=== PATIENT | female | born 1980 | race Caucasian/White ===

== ENCOUNTER 2018-04-02 00:25 | Inpatient (IN) | payer OTHER ==
[~2018-04-02] VITALS: Ht 157.5 cm; Wt 58.9 kg
[2018-04-02] MEDS ORDERED: ONDANSETRON 4 MG INJ IV PRN (04:00)
[2018-04-02] MEDS ORDERED: morphine 2 MG INJ IV PRN (04:00)
[2018-04-02] MEDS ORDERED: NACL 0.9% 3 ML SYG IV SCH (04:00)
[2018-04-02 04:01] VITALS: BP 90/55; PULSE 64; RESP 18
--- NOTE | 2018-04-02 04:06 | HP ---
Date/Time of Note Date/Time of Note DATE: 04/02/18 TIME: 04:06 Assessment/Plan VTE Prophylaxis Pharmacological prophylaxis: other Lines/Catheters IV [facility]from [facility] Peripheral IV Assessment/Plan Hospital Course Patient is a female with a past medical history significant for recent diagnosis of gallstones who presents to [facility] as a transfer from outside facility. Patient has been going to the ER multiple times over the past month for right upper quadrant pain. Patient has been diagnosed with gallstones however no cholecystitis. During the visit today, patient once again got an ultrasound that stated that there may be some pericholecystic fluid associated with the gallbladder as well as possibility of some gallstones. Radiologist over at [facility] suggested a HIDA scan. Currently patient states that she has been trying get an appointment with her primary care physician but her appointment is still a few weeks away. Patient still complains of right upper quadrant pain however appears well. Patient denies chest pain, shortness of breath, headache, dizziness, leg pain. Patient also states she had mild nausea and vomiting. Objective Physical exam General: Patient is laying in bed and answers questions appropriately Mentation: Patient is alert and oriented 4, Head: Normocephalic atraumatic Eyes: EOMI, pupils reactive to light Neck: Supple, nontender, midline Respiratory: Clear to auscultation bilaterally Cardiovascular: regular rate, no obvious murmurs Gastrointestinal: Right upper quadrant tenderness to palpation, bowel sounds heard. Neurological: Moves all extremities spontaneously Skin: No new skin lesions Assessment and plan symptomatic Cholelithiasis with possible cholecystitis -Ultrasound at outside facility found gallstones with pericholecystic fluid, not definitive cholecystitis but recommended HIDA scan- -HIDA scan ordered -N.p.o. -IV fluid -Due to the uncertain nature of the previous ultrasound, will await HIDA scan. -will consult Dr. Amos, general surgery to be on board due to symptomatic cholilithiasis. -Liver enzymes from outside facility are within normal limits, no fever, no white count. The above decisions were made based on lab values from transferring facility, blood work and labs are ordered stat and still pending at this facility. Disposition -We will await results of HIDA scan and general surgery consultation. Results 24hrs Laboratory Tests Test 04/02/18 03:55 White Blood Count Pending Red Blood Count Pending Hemoglobin Pending Hematocrit Pending Mean Corpuscular Volume Pending Mean Corpuscular Hemoglobin Pending Mean Corpuscular Hemoglobin Concent Pending Red Cell Distribution Width Pending Platelet Count Pending Mean Platelet Volume Pending HPI/ROS Admit Date/Time Admit Date/Time Apr 02, 2018 at 03:17 PMH/Family/Social Past Medical History Medications Current Medications Sodium Chloride 1,000 ml @ 70 mls/hr [id number] IV ; Start 04/02/18 at 03:37 IV Flush (NS 3 ml) 3 ml PER PROTOCOL IV ; Start 04/02/18 at 04:00 Ondansetron HCl (Zofran Inj) 4 mg Q6H PRN IV NAUSEA/VOMITING; Start 04/02/18 at 04:00 Morphine Sulfate (morphine) 2 mg Q4H PRN IV .PAIN 7-10; Start 04/02/18 at 04:00 Pantoprazole (Protonix Iv) 40 mg DAILY@06 IV ; Start 04/02/18 at 06:00 Piperacillin Sod/ Tazobactam Sod 100 ml @ 200 mls/hr Q6 IVPB ; Start 04/02/18 at 06:00 Coded Allergies: No Known Allergy (Verified , 11/11/11) Social History Smoking Status: Never smoker Exam/Review of Systems Vital Signs Vitals Vital Signs Date Temp Pulse Resp B/P (MAP) Pulse Ox O2 O2 Flow FiO2 Time Delivery Rate 04/02/18 98.0 64 18 90/55 (67) 98 Room Air 04:01 TILA IRVIN Apr 02, 2018 04:06
[2018-04-02] MEDS: SOD CHLORIDE 0.9% 1,000 ML IV SCH (04:08)
[2018-04-02 04:11] VITALS: Ht 157.5 cm; Wt 58.9 kg
[2018-04-02] MEDS: PIPER-TAZO 3.375 GM IV (PMX) 100 ML IVPB SCH ×3 (05:30→19:10)
[2018-04-02] MEDS: PANTOPRAZOLE 40 MG INJ IV SCH (05:30)
[2018-04-02 07:34] VITALS: BP 93/54; PULSE 63; RESP 18
--- NOTE | 2018-04-02 10:03 | QN ---
Documentation Comment This is a 37-year-old female admitted overnight as a transfer from outside facility with right upper quadrant pain. 1. Recurrent biliary colic, with cholelithiasis, rule out acute cholecystitis 2. Hypochromic microcytic anemia: Chronic stable 3. Acute transaminitis Plan: -Await general surgical review -Follow-up HIDA scan -MRCP -Continue supportive care MIKKI ESPINOSA Apr 02, 2018 10:03
[2018-04-02] MEDS ORDERED: FAMOTIDINE 20 MG INJ IV ONE (13:00)
--- NOTE | 2018-04-02 15:25 | PREAC ---
Date/Time of Note Date/Time of Note DATE: 04/02/18 TIME: 15:23 Anesthesia Eval and Record Evaluation Time Pre-Procedure Interview DATE: 04/02/18 TIME: 15:23 Age 37 Sex female NPO: 8 hrs Preoperative diagnosis symptomatic Cholelithiasis Planned procedure laparoscopic cholecystectomy Past Medical History Past Medical History: None Surgery & Anesthesia Issues No known issue Meds Anticoagulation: No Beta Billy within 24 hr: No Reason Beta Billy not given: Pt. not on B-Billy Reported Medications [none] No Conflict Check 11/11/11 Current Medications Sodium Chloride 1,000 ml @ 70 mls/hr [id number] IV Last administered on 04/02/18at 04:08; Admin Dose 70 MLS/HR; Start 04/02/18 at 03:37 IV Flush (NS 3 ml) 3 ml PER PROTOCOL IV ; Start 04/02/18 at 04:00 Ondansetron HCl (Zofran Inj) 4 mg Q6H PRN IV NAUSEA/VOMITING; Start 04/02/18 at 04:00 Pantoprazole (Protonix Iv) 40 mg DAILY@06 IV Last administered on 04/02/18at 05:30; Admin Dose 40 MG; Start 04/02/18 at 06:00 Piperacillin Sod/ Tazobactam Sod 100 ml @ 200 mls/hr Q6 IVPB Last administered on 04/02/18at 11:52; Admin Dose 200 MLS/HR; Start 04/02/18 at 06:00 Influenza Virus Vaccine Quadrival (Fluzone) 0.5 ml ONCE ONCE IM* ; Start 04/03/18 at 10:00; Stop 04/03/18 at 10:01 Morphine Sulfate (morphine) 4 mg Q4H PRN IV .PAIN 7-10; Start 04/02/18 at 16:00 Simethicone (Mylicon) 80 mg Q6H PRN PO DISTENSION/GAS/BLOATING; Start 04/02/18 at 13:00 Meds reviewed: Yes Allergies Coded Allergies: No Known Allergy (Verified , 11/11/11) Allergies Reviewed: Yes Labs/Studies Labs Reviewed: Reviewed by anesthesiologist Result Diagram: 04/02/18 0355 04/02/18 0355 Laboratory Tests 04/02/18 03:55 test: Negative Pre-procedure Exam Last vitals Vital Signs Date Temp Pulse Resp B/P (MAP) Pulse Ox O2 O2 Flow FiO2 Time Delivery Rate 04/02/18 97.6 63 18 93/54 (67) 100 Room Air 07:34 Airway: Adequate mouth opening Mallampati: Mallampati II Teeth: Normal Lung: Normal Heart: Normal ASA Physical Status ASA physical status: 1 Emergency: None Planned Anesthetic General/MAC: ETT Pre-operative Attestations Prior to commencing anesthesia and surgery, the patient was re-evaluated, there was verification of: *The patient's identity *The results of appropriate recent lab work and preoperative vital signs *The above evaluation not changing prior to induction *Anesthetic plan, risk benefits, alternative and complications discussed with patient/family; questions answered; patient/family understands, accepts and wishes to proceed. OPAL CONKLIN Apr 02, 2018 15:25
[2018-04-02 16:04] VITALS: BP 93/57; PULSE 69; RESP 18
[2018-04-02] MEDS: morphine 4 MG/ML VIAL IV PRN ×2 (19:00→23:59)
[2018-04-02 19:18] VITALS: BP 102/63; PULSE 74; RESP 16
[2018-04-03] VITALS (22 sets, daily range): BP systolic 89–150; BP diastolic 51–80; PULSE 63–92; RESP 12–25
[2018-04-03] MEDS: PIPER-TAZO 3.375 GM IV (PMX) 100 ML IVPB SCH ×5 (00:07→19:35)
[2018-04-03] MEDS: PANTOPRAZOLE 40 MG INJ IV SCH (05:28)
[2018-04-03] MEDS: morphine 4 MG/ML VIAL IV PRN ×4 (05:29→20:33)
--- NOTE | 2018-04-03 07:13 | CONS ---
Assessment/Plan Assessment/Plan Assessment/Plan (Daily) No evidence of cystic duct obstruction on HIDA scan. Patient however quite symptomatic with positive Emerson sign. She has been seen multiple times in the emergency room. My recommendation is that the patient undergo laparoscopic cholecystectomy, possible open. I have discussed the procedure, outcomes, alternatives and risks in detail with the patient who is most anxious to proceed. Consultation Date/Type/Reason Admit Date/Time Apr 02, 2018 at 03:17 Date of Consultation: Apr 03, 2018 Type of Consult General surgery Reason for Consultation Severe biliary colic versus cholecystitis Date/Time of Note DATE: 04/03/18 TIME: 07:10 Hx of Present Illness The patient is an otherwise healthy 37-year-old female who has had multiple emergency room visits for right upper quadrant abdominal pain. She has known gallstones. She was recently hospitalized at another facility then transferred here for continuance of care. Yesterday HIDA scan was performed and did not show cystic duct obstruction. The patient however continues to be quite symptomatic. She has had no fevers, chills or jaundice. Her LFTs are normal Constitutional: no complaints Eyes: no complaints ENT: no complaints Respiratory: no complaints Cardiovascular: no complaints Gastrointestinal: pain (Upper quadrant), nausea, vomiting Genitourinary: no complaints Musculoskeletal: no complaints Skin: no complaints Neurologic: no complaints Endocrine: no complaints Lymphatic: no complaints Past Medical History Medical History: gallstones Home Meds Reported Medications [none] No Conflict Check 11/11/11 Medications Current Medications Sodium Chloride 1,000 ml @ 70 mls/hr [id number] IV Last administered on 04/03/18at 00:00; Admin Dose 70 MLS/HR; Start 04/02/18 at 03:37 IV Flush (NS 3 ml) 3 ml PER PROTOCOL IV ; Start 04/02/18 at 04:00 Ondansetron HCl (Zofran Inj) 4 mg Q6H PRN IV NAUSEA/VOMITING; Start 04/02/18 at 04:00 Pantoprazole (Protonix Iv) 40 mg DAILY@06 IV Last administered on 04/03/18at 05:28; Admin Dose 40 MG; Start 04/02/18 at 06:00 Piperacillin Sod/ Tazobactam Sod 100 ml @ 200 mls/hr Q6 IVPB Last administered on 04/03/18at 05:29; Admin Dose 200 MLS/HR; Start 04/02/18 at 06:00 Influenza Virus Vaccine Quadrival (Fluzone) 0.5 ml ONCE ONCE IM* ; Start 04/03/18 at 10:00; Stop 04/03/18 at 10:01 Morphine Sulfate (morphine) 4 mg Q4H PRN IV .PAIN 7-10 Last administered on 04/03/18at 05:29; Admin Dose 4 MG; Start 04/02/18 at 16:00 Simethicone (Mylicon) 80 mg Q6H PRN PO DISTENSION/GAS/BLOATING; Start 04/02/18 at 13:00 Allergies: Coded Allergies: No Known Allergy (Verified , 11/11/11) Past Surgical History Past Surgical Hx: no surgical history Family History Significant Family History: no pertinent family hx Social History Alcohol Use: none Smoking Status: Never smoker Exam/Review of Systems Exam Vitals Vital Signs Date Temp Pulse Resp B/P (MAP) Pulse Ox O2 O2 Flow FiO2 Time Delivery Rate 04/03/18 98.9 63 16 96/69 (78) 98 Room Air 01:17 Intake and Output 04/02/18 04/02/18 04/03/18 1414:59 22:59 06:59 IntakeIntake Total 200 ml 1130 ml 900 ml OutputOutput Total 2 ml BalanceBalance 200 ml 1128 ml 900 ml Constitutional: alert, oriented Psych: no complaints Head: normocephalic Eyes: nl conjunctiva ENMT: nl external ears & nose Neck: supple Respiratory: clear to auscultation Cardiovascular: regular rate and rhythm Gastrointestinal: tender (Right upper quadrant. Positive Emerson sign) Musculoskeletal: nl extremities to inspection Extremities: normal pulses Neurological: GLASS SANDER BELT II-XII intact Results Result Diagram: 04/03/18 0430 04/03/18 0430 Results 24hrs Laboratory Tests Test 04/02/18 10:00 04/03/18 04:30 Urine Test NEGATIVE White Blood Count 4.8 Red Blood Count 3.85 L Hemoglobin 9.2 L Hematocrit 29.5 L Mean Corpuscular Volume 76.6 L Mean Corpuscular Hemoglobin 23.9 L Mean Corpuscular Hemoglobin Concent 31.2 L Red Cell Distribution Width 15.3 H Platelet Count 281 Mean Platelet Volume 10.2 Immature Granulocytes % 0.200 Neutrophils % 44.5 Lymphocytes % 41.8 Monocytes % 9.1 Eosinophils % 4.0 Basophils % 0.4 Nucleated Red Blood Cells % 0.0 Immature Granulocytes # 0.010 Neutrophils # 2.1 Lymphocytes # 2.0 Monocytes # 0.4 Eosinophils # 0.2 Basophils # 0.0 Nucleated Red Blood Cells # 0.0 Sodium Level 142 Potassium Level 3.9 Chloride Level 106 Carbon Dioxide Level 22 Anion Gap 14 H Blood Urea Nitrogen 3 L Creatinine 0.52 Est Glomerular Filtrat Rate mL/min > 60 Glucose Level 67 #L Calcium Level 8.5 Magnesium Level 1.8 Total Bilirubin 0.0 L Direct Bilirubin 0.00 Indirect Bilirubin 0.0 Aspartate Amino Transf (AST/SGOT) 59 H Alanine Aminotransferase (ALT/SGPT) 97 H Alkaline Phosphatase 70 Total Protein 6.1 Albumin 3.2 L Globulin 2.90 Albumin/Globulin Ratio 1.10 Lipase 56 Medications Medication Current Medications Sodium Chloride 1,000 ml @ 70 mls/hr [id number] IV Last administered on 04/03/18at 00:00; Admin Dose 70 MLS/HR; Start 04/02/18 at 03:37 IV Flush (NS 3 ml) 3 ml PER PROTOCOL IV ; Start 04/02/18 at 04:00 Ondansetron HCl (Zofran Inj) 4 mg Q6H PRN IV NAUSEA/VOMITING; Start 04/02/18 at 04:00 Pantoprazole (Protonix Iv) 40 mg DAILY@06 IV Last administered on 04/03/18at 05:28; Admin Dose 40 MG; Start 04/02/18 at 06:00 Piperacillin Sod/ Tazobactam Sod 100 ml @ 200 mls/hr Q6 IVPB Last administered on 04/03/18 05:29; Admin Dose 200 MLS/HR; Start 04/02/18 at 06:00 Influenza Virus Vaccine Quadrival (Fluzone) 0.5 ml ONCE ONCE IM* ; Start 04/03/18 at 10:00; Stop 04/03/18 at 10:01 Morphine Sulfate (morphine) 4 mg Q4H PRN IV .PAIN 7-10 Last administered on 04/03/18 05:29; Admin Dose 4 MG; Start 04/02/18 at 16:00 Simethicone (Mylicon) 80 mg Q6H PRN PO DISTENSION/GAS/BLOATING; Start 04/02/18 at 13:00 RASHAUN BUNDY MD Apr 03, 2018 07:13
[2018-04-03] MEDS ORDERED: GLYCOPYRROLATE 0.4 MG INJ ONE (09:41)
[2018-04-03] MEDS ORDERED: KETOROLAC 30 MG INJ ONE (09:41)
[2018-04-03] MEDS ORDERED: ROPIVACAINE 0.5 % 30 ML VIAL ONE (09:41)
[2018-04-03] MEDS ORDERED: ONDANSETRON 4 MG INJ ONE (09:41)
[2018-04-03] MEDS ORDERED: METOCLOPRAMIDE 10 MG INJ ONE (09:41)
[2018-04-03] MEDS ORDERED: ROCURONIUM 50 MG INJ ONE (09:41)
[2018-04-03] MEDS ORDERED: PROPOFOL 20 ML ONE (09:41)
[2018-04-03] MEDS ORDERED: NEOSTIGMINE 3 MG/3 ML SYRINGE ONE (09:41)
[2018-04-03] MEDS ORDERED: BUPIVACAINE 0.5%/EPI (SDV) 30 ML INJ ONE (09:57)
[2018-04-03] MEDS ORDERED: MEPERIDINE 25 MG INJ IV PRN (10:00)
[2018-04-03] MEDS ORDERED: DIPHENHYDRAMINE 50 MG INJ IV PRN (10:00)
[2018-04-03] MEDS ORDERED: INFLUENZA VIRUS VACCINE 0.5 ML (DISPENSING) IM* ONE (10:00)
[2018-04-03] MEDS ORDERED: ONDANSETRON 4 MG INJ IV PRN (10:00)
[2018-04-03] MEDS ORDERED: KETOROLAC 30 MG INJ IV PRN (10:00)
[2018-04-03] MEDS ORDERED: HYDROmorphONE 1 MG/5 ML IV SYRINGE IV PRN ×3 (10:00)
[2018-04-03] MEDS ORDERED: EPHEDrine 25 MG/5 ML SYG ONE (10:28)
--- NOTE | 2018-04-03 11:16 | OPR ---
Date/Time of Note Date/Time of Note DATE: 04/03/18 TIME: 11:11 Operative Report Procedure Date: Apr 03, 2018 Preoperative Diagnosis Acute cholecystitis versus biliary colic Postoperative Diagnosis Acute cholecystitis Operation/Procedure Performed 1. Laparoscopic cholecystectomy 2. Placement of drain Surgeon Rashaun Bundy MD Lube Attendant None Anesthesia Type: general Anesthesiologist: CANDIE RAMOS MD Estimated Blood Loss: minimal Transfusion none Specimen Gallbladder Grafts/Implants none Tubes/Drains #19 Round Neo Complications none Pt Condition Post Procedure: stable Disposition: PACU Indications Symptomatic cholelithiasis Procedure Description After satisfactory general endotracheal anesthesia was achieved, the abdomen was prepped and draped in the usual fashion. The abdomen was insufflated with carbon dioxide through an umbilical Veress needle to 15 mmHg pressure. The Veress needle was removed and the incision extended to 5 mm through which a 5 mm trocar was placed. A 5 mm 0 degree lens was placed. Laparoscopy showed a distended gallbladder which was edematous at its base, indicating acute cholecystitis. Under direct visualization a 12 mm epigastric trocar was placed as well as 2 more 5 mm right lateral abdominal trochars. The dome of the gallbladder was then grasped and retracted superiorly. Hay's pouch was gr asped and retracted inferolaterally. The hepatoduodenal ligament was carefully dissected between the gallbladder and the well-visualized common duct. The cystic duct was then quadruply hemoclipped and divided high at the junction of the gallbladder and the cystic duct. The cystic artery was identified immediately posteriorly. This was divided over clips. There was a tiny 1 mm accessory duct identified just near the cystic artery. This was divided over clip. The gallbladder was then dissected from below using electrocautery dissection and placed intact into an Endo Catch removed by the epigastric route. Hemostasis of the liver bed was total, and irrigant returned clear. Because of the inflammation and because of the identification of an accessory bile duct, it was elected to place a drain. A #19 round Neo drain was placed draining the right subhepatic space and gallbladder fossa and exited through the lateralmost puncture site where it was secured to skin with 2-0 nylon. The abdomen was then desufflated and all trochars were removed. The fascia of the epigastrium was closed with 2 sutures of 0 Vicryl. Skin punctures were infiltrated with 30 cc of 0.25% Marcaine with epinephrine and closed with christian. Sponge and needle counts were reported as correct x2. RASHAUN BUNDY MD Apr 03, 2018 11:16
[2018-04-03] MEDS ORDERED: PHENYLephrine 10 MG INJ ONE (11:19)
[2018-04-03] MEDS ORDERED: morphine 2 MG INJ IV PRN (11:30)
[2018-04-03] MEDS ORDERED: OXYCODONE/ACETAMINOPHEN (5/325) TAB PO PRN (11:30)
--- NOTE | 2018-04-03 12:21 | PAC ---
Date/Time of Note Date/Time of Note DATE: 04/03/18 TIME: 12:21 Post-Anesthesia Notes Post-Anesthesia Note Last documented vital signs Vital Signs Date Temp Pulse Resp B/P (MAP) Pulse Ox O2 O2 Flow FiO2 Time Delivery Rate 04/03/18 98 72 15 121/67 100 Room Air 11:54 (85) 04/03/18 8.0 11:39 04/03/18 98.0 11:23 Activity: WNL Respiratory function: WNL Cardiovascular function: WNL Mental status: Baseline Pain reasonably controlled: Yes Hydration appropriate: Yes Nausea/Vomiting absent: No CANDIE RAMOS MD Apr 03, 2018 12:21
[2018-04-03] MEDS: ONDANSETRON 4 MG INJ IV PRN (18:25)
[2018-04-03] MEDS: SOD CHLORIDE 0.9% 1,000 ML IV SCH ×3 (19:30→20:34)
--- NOTE | 2018-04-03 19:50 | PN ---
DATE: 04/03/2018 SUBJECTIVE: Postoperative pain. PHYSICAL EXAMINATION GENERAL: Lethargic from anesthesia, but arousable, currently comfortable. HEENT: Head is normocephalic. Pupils equal and reactive. NECK: Supple. CHEST: Clear. ABDOMEN: Still mildly distended. Operative site covered in clean, dry dressing clean bandage. Hypo active bowel sounds. EXTREMITIES: Lower extremities negative for edema. NEUROLOGIC: No gross focal deficits. LABORATORY VALUES: Reviewed. All other chronic and stable hypochromic microcytic anemia, otherwise, unremarkable. LFTs are improved today to 59 and 97. Urinalysis negative. IMPRESSION: A 37-year-old female with right upper quadrant pain managed for the followin. Acute cholelithiasis with biliary colic with concerns for acute cholecystitis. She is status pos t laparoscopic cholecystectomy and drain placement today. 2. Transaminitis, MRCP ruled out active choledocholithiasis. The patient may have passed stone. Le vels are trending down. DISPOSITION: Continue routine postop care. Continue to ____ liver transaminases. Continue vent sup port, pain control. Further interventions per course. Discharge once cleared by surgery. Dictated By: MIKKI ESPINOSA MD BA/NTS Conf#: [id number] DID#: [id number] CC: TILA IRVIN MD;*EndCC*
[2018-04-04] MEDS: ONDANSETRON 4 MG INJ IV PRN ×2 (00:13→08:55)
[2018-04-04] MEDS: morphine 4 MG/ML VIAL IV PRN ×2 (00:15→05:36)
[2018-04-04] MEDS: PIPER-TAZO 3.375 GM IV (PMX) 100 ML IVPB SCH ×5 (00:15→23:36)
[2018-04-04 02:00] VITALS: BP 91/53; PULSE 70; RESP 18
[2018-04-04] MEDS: PANTOPRAZOLE 40 MG INJ IV SCH (05:35)
[2018-04-04 07:24] VITALS: BP 95/56; PULSE 78; RESP 18
[2018-04-04] MEDS: SOD CHLORIDE 0.9% 1,000 ML IV SCH (12:26)
[2018-04-04] MEDS: METOCLOPRAMIDE 10 MG INJ IV PRN ×2 (13:20→22:21)
[2018-04-04 14:18] VITALS: BP 99/61; PULSE 80; RESP 18
--- NOTE | 2018-04-04 15:54 | QN ---
Documentation Comment Postoperative day #1 Markedly symptomatically improved Still quite nauseated Abdominal examination is benign AUTUMN drainage serosanguineous Plan: Continue medical management. Should be able to discharge tomorrow RASHAUN BUNDY MD Apr 04, 2018 15:54
[2018-04-04] MEDS: OXYCODONE/ACETAMINOPHEN (5/325) TAB PO PRN ×2 (15:59→22:21)
--- NOTE | 2018-04-04 16:28 | PN ---
Date/Time of Note Date/Time of Note DATE: 04/04/18 TIME: 16:22 Assessment/Plan VTE Prophylaxis Risk score (from Ns)>0 risk: 1 SCD applied (from Ns): Yes Pharmacological prophylaxis: NA/contraindicated Pharm contraindication: low risk/ambulating Lines/Catheters IV Catheter Type (from Nrsg): Peripheral IV Urinary Cath still in place: No Assessment/Plan Hospital Course S: feels well, was still having some nausea this am per nursing, but patient s tates she feels better after walking and passing gas O: General: A&O x3, answering questions appropriately, mildly lethargic HEENT: NC/ AT. PERRL. EOM intact Neck: supple CVS: S1, S2, RRR. no murmurs. no pain on chest wall palpation Lungs: CTA b/l. no wheezing or rhonchi Abd: soft, drain RUQ, miminal volume serosanguineous drainage, hypoactive BS, dressting over laparoscopic sites paulina and dry Ext: moving all extremities skin: no rashes assessment and plan: This is a 37-year-old female admitted as a transfer from outside facility with right upper quadrant pain. 1. Recurrent biliary colic, with cholelithiasis, and acute vs chronic cholecystitis -s/p lap maría 04/03/18 -lots of inflammation seen with drain left in place 2. Hypochromic microcytic anemia: Chronic stable -iron profile 3. Acute transaminitis -MRCP negative for choledocholithiasis -levels went up today likely 2/2 surgery Plan: -continue routine postop care, pain control and drain mgt, encourage ambulation -await surgery review and recs -continue abx for now -if patient is still here, f/u transaminase levels in am to ensure down trend -Continue supportive care Result Diagram: 04/04/18 0423 04/04/18 0423 Results 24hrs Laboratory Tests Test 04/04/18 04:23 White Blood Count 6.6 # Red Blood Count 3.95 L Hemoglobin 9.5 L Hematocrit 30.4 L Mean Corpuscular Volume 77.0 L Mean Corpuscular Hemoglobin 24.1 L Mean Corpuscular Hemoglobin Concent 31.3 L Red Cell Distribution Width 15.2 H Platelet Count 300 Mean Platelet Volume 10.3 Immature Granulocytes % 0.300 Neutrophils % 69.5 Lymphocytes % 20.4 Monocytes % 8.6 Eosinophils % 0.9 Basophils % 0.3 Nucleated Red Blood Cells % 0.0 Immature Granulocytes # 0.020 Neutrophils # 4.6 Lymphocytes # 1.4 Monocytes # 0.6 Eosinophils # 0.1 Basophils # 0.0 Nucleated Red Blood Cells # 0.0 Sodium Level 139 Potassium Level 3.6 Chloride Level 103 Carbon Dioxide Level 21 Anion Gap 15 H Blood Urea Nitrogen < 2 L Creatinine 0.55 Est Glomerular Filtrat Rate mL/min > 60 Glucose Level 62 L Calcium Level 8.6 Total Bilirubin 0.4 Direct Bilirubin 0.00 Indirect Bilirubin 0.4 Aspartate Amino Transf (AST/SGOT) 169 H Alanine Aminotransferase (ALT/SGPT) 206 H Alkaline Phosphatase 92 Total Protein 6.3 Albumin 3.3 Globulin 3.00 Albumin/Globulin Ratio 1.10 Exam/Review of Systems Exam Vitals Vital Signs Date Temp Pulse Resp B/P (MAP) Pulse Ox O2 O2 Flow FiO2 Time Delivery Rate 04/04/18 98.3 80 18 99/61 (74) 99 Room Air 14:18 04/03/18 8.0 11:39 Intake and Output 04/03/18 04/03/18 04/04/18 1515:00 23:00 07:00 IntakeIntake Total 1200 ml 1390 ml 1710 ml OutputOutput Total 53 ml 45 ml 25 ml BalanceBalance 1147 ml 1345 ml 1685 ml Results Results 24hrs Laboratory Tests Test 04/04/18 04:23 White Blood Count 6.6 # Red Blood Count 3.95 L Hemoglobin 9.5 L Hematocrit 30.4 L Mean Corpuscular Volume 77.0 L Mean Corpuscular Hemoglobin 24.1 L Mean Corpuscular Hemoglobin Concent 31.3 L Red Cell Distribution Width 15.2 H Platelet Count 300 Mean Platelet Volume 10.3 Immature Granulocytes % 0.300 Neutrophils % 69.5 Lymphocytes % 20.4 Monocytes % 8.6 Eosinophils % 0.9 Basophils % 0.3 Nucleated Red Blood Cells % 0.0 Immature Granulocytes # 0.020 Neutrophils # 4.6 Lymphocytes # 1.4 Monocytes # 0.6 Eosinophils # 0.1 Basophils # 0.0 Nucleated Red Blood Cells # 0.0 Sodium Level 139 Potassium Level 3.6 Chloride Level 103 Carbon Dioxide Level 21 Anion Gap 15 H Blood Urea Nitrogen < 2 L Creatinine 0.55 Est Glomerular Filtrat Rate mL/min > 60 Glucose Level 62 L Calcium Level 8.6 Total Bilirubin 0.4 Direct Bilirubin 0.00 Indirect Bilirubin 0.4 Aspartate Amino Transf (AST/SGOT) 169 H Alanine Aminotransferase (ALT/SGPT) 206 H Alkaline Phosphatase 92 Total Protein 6.3 Albumin 3.3 Globulin 3.00 Albumin/Globulin Ratio 1.10 Medications Medication Current Medications Sodium Chloride 1,000 ml @ 70 mls/hr [id number] IV Last administered on 04/04/18 12:26; Admin Dose 70 MLS/HR; Start 04/02/18 at 03:37 IV Flush (NS 3 ml) 3 ml PER PROTOCOL IV ; Start 04/02/18 at 04:00 Pantoprazole (Protonix Iv) 40 mg DAILY@06 IV Last administered on 04/04/18 05:35; Admin Dose 40 MG; Start 04/02/18 at 06:00 Piperacillin Sod/ Tazobactam Sod 100 ml @ 200 mls/hr Q6 IVPB Last administered on 04/04/18 12:25; Admin Dose 200 MLS/HR; Start 04/02/18 at 06:00 Morphine Sulfate (morphine) 4 mg Q4H PRN IV .PAIN 7-10 Last administered on 04/04/18 05:36; Admin Dose 4 MG; Start 04/02/18 at 16:00 Simethicone (Mylicon) 80 mg Q6H PRN PO DISTENSION/GAS/BLOATING; Start 04/02/18 at 13:00 Oxycodone/ Acetaminophen (Percocet (5/ 325)) 1 tab Q4H PRN PO .MILD PAIN (1-3) Last administered on 04/04/18 15:59; Admin Dose 1 TAB; Start 04/03/18 at 11:30 Oxycodone/ Acetaminophen (Percocet (5/ 325)) 2 tab Q4H PRN PO .MODERATE PAIN (4-6) Last administered on 04/03/18 18:32; Admin Dose 2 TAB; Start 04/03/18 at 11:30 Ondansetron HCl (Zofran Inj) 4 mg Q6H PRN IV NAUSEA/VOMITING Last administered on 04/04/18 08:55; Admin Dose 4 MG; Start 04/03/18 at 11:30 Metoclopramide HCl (Reglan) 10 mg Q6H PRN IV nausea and vomiting Last administered on 04/04/18at 13:20; Admin Dose 10 MG; Start 04/04/18 at 13:00 MIKKI ESPINOSA Apr 04, 2018 16:28
[2018-04-04 19:15] VITALS: BP 99/64; PULSE 82; RESP 20
[2018-04-05 00:22] VITALS: BP 102/64; PULSE 77; RESP 18
[2018-04-05 02:30] VITALS: BP 99/62; PULSE 87; RESP 20
[2018-04-05] MEDS: SOD CHLORIDE 0.9% 1,000 ML IV SCH (03:07)
[2018-04-05] MEDS: PIPER-TAZO 3.375 GM IV (PMX) 100 ML IVPB SCH (05:47)
[2018-04-05] MEDS ORDERED: PANTOPRAZOLE (EC) 40 MG TAB PO SCH (06:00)
[2018-04-05] MEDS ORDERED: PANT40TA4 PO (06:36)
[2018-04-05] MEDS ORDERED: ACETAMINOPHEN 325 MG TAB PO PRN (07:00)
--- NOTE | 2018-04-05 07:47 | QN ---
Documentation Comment Postoperative day #2 Markedly symptomatically improved. No further nausea Abdominal examination is benign Slight transaminitis (MRCP negative for CBD stones) Plan: AUTUMN drain removed (minimal drainage) Patient cleared for discharge home today RASHAUN BUNDY MD Apr 05, 2018 07:47
[2018-04-05 08:07] VITALS: BP 110/72; PULSE 77; RESP 18
[2018-04-05] MEDS ORDERED: CIPR500T4 PO (11:02)
[2018-04-05] MEDS ORDERED: LACT1TAB11 PO (11:02)
[2018-04-05] MEDS ORDERED: METR-122 PO (11:02)
[2018-04-05] MEDS ORDERED: DOCU-144 PO (11:02)
[2018-04-05] MEDS ORDERED: POTASSIUM CHLORIDE (SR) 20 MEQ TAB PO STA (11:04)
--- NOTE | 2018-04-05 11:06 | PDOCDIS ---
Discharge Instructions CONDITION [id number] Patient Condition: [id number] Stable HOME CARE INSTRUCTIONS: [id number] Diet Instructions: [id number] Low Fat /Cholesterol ACTIVITY: [id number] Activity Restrictions: [id number] Slowly Increase Activity Rest between Activity Avoid heavy lifting Do not Drive Do not operate Machinery Do not operate Power Tool Avoid Heavy Housework Keep Limb Elevated Czedt6Ml Bathing Restrictions: Idjmo5b Shower [id number] Activity Restrictions [id number] No tub baths until oozing has Comment: resolved FOLLOW UP/APPOINTMENTS Follow-up Plan Call the surgeon's office for followup Name, Degree: Thor Amos MD Specialty : General Surgery Office Address : [address] [place] [address] Office Office MIKKI ESPINOSA Apr 05, 2018 11:06
--- NOTE | 2018-04-07 02:35 | DS ---
Date/Time of Note Date/Time of Note DATE: 04/07/18 TIME: 02:30 Discharge Summary Admission/Discharge Info Admit Date/Time Apr 02, 2018 at 03:17 Discharge Date/Time Apr 05, 2018 at 11:26 Discharge Diagnosis This is a 37-year-old female admitted as a transfer from outside facility with right upper quadrant pain. 1. Recurrent biliary colic, with cholelithiasis, and acute vs chronic cholecystitis -s/p lap maría 04/03/18 -lots of inflammation seen with drain left in place for 1 day and removed on day of discharge 2. Hypochromic microcytic anemia: Chronic stable -iron profile consistent with iron deficiency 3. Acute transaminitis -MRCP negative for choledocholithiasis -likely reactive from surgery, will f/u outpt with surgery and PCP for rec heck in about 1 week . Consults General Surgery: Dr Amos . Hospital Course This is a 37-year-old female admitted as a transfer from outside facility with right upper quadrant pain. She was admitted for Reurrent biliary colic, with cholelithiasis and underwent lap maría 04/03/18. MRCP showed no choledoch olithiasis. There was a lot of inflammation seen with drain left in place for 1 day and removed on day of discharge. She had a lot of nausea on the immediate postop day and hence was kept an extra day for discharge. Comorbidities were also aggressively managed as per Med records. Patient at this time has been evaluated and examined in detail and is assessed to be in stable condition and ready for discharge. . Home Meds Active Scripts Lactobacillus Acidophilus (ACIDOPHILUS) 1 Each Tablet, 1 EACH PO BID for 5 Days, #10 TAB Prov:MIKKI ESPINOSA M. 04/05/18 Metronidazole* (Metronidazole*) 500 Mg Tablet, 500 MG PO Q8, #15 TAB Prov:JESÚS,ANTOINETTEATITO M. 04/05/18 Ciprofloxacin Hcl* (Ciprofloxacin Hcl*) 500 Mg Tablet, 500 MG PO BID, #10 TAB Prov:MIKKI ESPINOSA M. 04/05/18 Docusate Sodium* (Colace*) 100 Mg Capsule, 100 MG PO BID, #14 CAP Prov:VIKTORIA ESPINOSAO M. 04/05/18 Pantoprazole* (Pantoprazole*) 40 Mg Tablet., 40 MG PO DAILY@06 for 7 Days, #7 TAB Prov:MIKKI ESPINOSA 04/05/18 Discontinued Reported Medications [none] No Conflict Check 11/11/11 Follow-up Plan Call the surgeon's office for followup Name, Degree: Thor Amos MD Specialty : General Surgery Office Address : [address] [place] [address] Office Office Primary Care Provider Not On Staff Doctor Time spent on discharge: < 30 minutes MIKKI ESPINOSA Apr 07, 2018 02:35
[2018-04-07] MEDS ORDERED: FER325 PO (02:36)
== END 2018-04-05 11:26 | disposition home or self-care (01) | DRG 419 ==
LOC: MS1 03:17
PROVIDERS: ADMIT Internal Medicine; ATTEND Internal Medicine
PROC: 0W9J30Z Drainage of Pelvic Cavity with Drainage Device, Percutaneous Approach (ICD-10-PCS; 2018-04-03)
PROC: 0FT44ZZ Resection of Gallbladder, Percutaneous Endoscopic Approach (ICD-10-PCS; principal; 2018-04-03 11:00)
DX: K80.12 Calculus of gallbladder with acute and chronic cholecystitis without obstruction (principal); D64.9 Anemia, unspecified
CPT/HCPCS: 74181; 78226; 80053; 83540; 83690; 83735; 84443; 84703; 85025; 85049; 85610; 85670; 85730; 88304; A9537; C9113; J1170; J1200; J1885; J2175; J2270; J2405; J2543; J2710; J2765; J2795; J7030